=== PATIENT | male | born 1995 | race Caucasian/White ===

== ENCOUNTER 2017-06-03 21:52 | Emergency (ER) | payer OTHER ==
[~2017-06-03] VITALS: Ht 182.9 cm; Wt 74.8 kg
[~2017-06-03 21:52] MED LIST: ACE3 PO; AMOX-559 PO
--- NOTE | 2017-06-03 22:07 | ER Report ---
History and Physical Time Seen By MD: 22:06 Hx. of Stated Complaint: PT REPORTS VOMITING SINCE 1700. IS CONSTIPATED. JUST GOT BACK FROM [place]. PT REPORTS SHARP PAIN IN CENTER OF STOMACH. HPI/ROS CHIEF COMPLAINT: nausea/vomiting and abdominal pain HISTORY OF PRESENT ILLNESS: This is a 21 year old male. He just returned home from [place]. On the way home from [place], he began having nausea and vomiting. He also has central abdominal pain. He had diarrhea x1 episode earlier today. No fevers. No sick contacts. He is unaware of any bad food exposure and avoided drinking the water while in [place]. He feels like he is dehydrated as well. No pain, burning or trouble urinating. REVIEW OF SYSTEMS: As above. Allergies: Coded Allergies: No Known Allergies (Unverified Allergy, Mild, 06/03/17) Home Meds Active Scripts Ondansetron (ZOFRAN ODT) 4 Mg Tab.rapdis, 4 MG PO Q6H Y for NAUSEA/VOMITING, # 20 TAB.KRISTOPHER 0 Refills Prov:KEILA OCHOA MD 06/03/17 Discontinued Scripts Amoxicillin/Pot Clav 875-125 Mg Tab (AUGMENTIN 875-125 TABLET) 1 Each Tablet, 1 TAB PO Q12H, #28 TAB Prov:VERITO GRAYSON FLOOR FRAMER 02/03/16 Reviewed Nurses Notes: Yes Hx Substance Use Disorder: No Constitutional Vital Sign - Last 24 Hours 06/03/17 06/03/17 06/03/17 06/03/17 22:00 22:02 22:15 22:30 Temp 100.9 Pulse 81 63 80 Resp 14 B/P (MAP) 138/70 (92) 136/70 116/60 (78) Pulse Ox 94 95 87 O2 Delivery Room Air 06/03/17 06/03/17 06/03/17 06/03/17 22:45 23:00 23:00 23:05 Pulse 80 ??? B/P (MAP) 117/53 (74) Pulse Ox 86 O2 Flow Rate 2.0 06/03/17 06/03/17 06/03/17 06/04/17 23:09 23:30 23:45 00:00 Temp 100.0 Pulse 76 67 84 Resp 14 14 B/P (MAP) 117/53 (74) 114/52 (72) 118/78 (91) Pulse Ox 92 95 O2 Delivery Room Air Room Air Physical Exam General Appearance: The patient is alert. No acute distress. Eyes: Pupils are equal, round. No pallor, injection or icterus. ENT: Mucous membranes are a little dry, but otherwise normal. Posterior oropharynx is normal. Respiratory: Lungs are clear to auscultation. Cardiovascular: Regular rate and rhythm. No murmurs, gallops or rubs. Normal capillary refill. Gastrointestinal: Abdomen is soft, tenderness periumbilical area. Nondistended. No rebound or guarding. Normal active bowel sounds. No costovertebral angle tenderness with percussion. Neurological: Alert and oriented x3. Skin: Warm and dry. No rashes. Musculoskeletal: Extremities are nontender. No tenderness in palpation of the back/spine. DIFFERENTIAL DIAGNOSIS: After history and physical exam, differential diagnosis was considered for abdominal pain and nausea/vomiting with one episode of diarrhea. Suspect likely gastroenteritis and mild dehydration. Medical Decision Making Data Points Result Diagram: 06/03/17220806/03/172208 Laboratory Hematology Test 06/03/17 21:58 06/03/17 22:09 Urine Color Yellow Urine Clarity Clear Urine pH 5.0 pH (4.8-9.5) Urine Specific [place] 1.027 Urine Protein Negative mg/dL (NEGATIVE) Urine Glucose (UA) Negative mg/dL (NEGATIVE) Urine Ketones Negative mg/dL (NEGATIVE) Urine Blood Negative (NEGATIVE) Urine Nitrite Negative (NEGATIVE) Urine Bilirubin Negative (NEGATIVE) Urine Urobilinogen Negative mg/dL (0.2-1.9) Urine Leukocyte Esterase Negative (NEGATIVE) Urine RBC 1 /HPF (0-2/HPF) Urine WBC 2 /HPF (0-5/HPF) Urine Squamous Epithelial Cells None /LPF (</=FEW) Urine Bacteria Negative /HPF (NONE-FEW) Urine Mucus Few /HPF (NONE-FEW) Red Blood Count 5.17 M/uL (4.00-5.60) Mean Corpuscular Volume 85.7 fL (80.0-96.0) Mean Corpuscular Hemoglobin 29.4 pg (26.0-33.0) Mean Corpuscular Hemoglobin Concent 34.3 g/dL (32.0-36.0) Red Cell Distribution Width 13.4 % (11.5-14.5) Mean Platelet Volume 7.4 fL (7.2-11.1) Neutrophils (%) (Auto) 91.4 % (39.4-72.5) Lymphocytes (%) (Auto) 2.9 % (17.6-49.6) Monocytes (%) (Auto) 4.8 % (4.1-12.4) Eosinophils (%) (Auto) 0.5 % (0.4-6.7) Basophils (%) (Auto) 0.4 % (0.3-1.4) Nucleated RBC Relative Count (auto) 0.0 /100WBC Neutrophils # (Auto) 15.5 K/uL (2.0-7.4) Lymphocytes # (Auto) 0.5 K/uL (1.3-3.6) Monocytes # (Auto) 0.8 K/uL (0.3-1.0) Eosinophils # (Auto) 0.1 K/uL (0.0-0.5) Basophils # (Auto) 0.1 K/uL (0.0-0.1) Nucleated RBC Absolute Count (auto) 0.00 K/uL Sodium Level 137 mmol/L (137-145) Potassium Level 3.8 mmol/L (3.5-5.0) Chloride Level 99 mmol/L (98-107) Carbon Dioxide Level 26 mmol/L (22-30) Blood Urea Nitrogen 22 mg/dl (9-21) Creatinine 0.80 mg/dl (0.66-1.25) Glomerular Filtration Rate Calc > 60.0 Random Glucose 115 mg/dl (75-110) Calcium Level 9.5 mg/dl (8.4-10.2) Total Bilirubin 0.7 mg/dl (0.2-1.3) Aspartate Amino Transf (AST/SGOT) 56 U/L (0-35) Alanine Aminotransferase (ALT/SGPT) 90 U/L (0-56) Alkaline Phosphatase 85 U/L (0-126) C-Reactive Protein 1.0 mg/dl (<1.0) Total Protein 7.8 gm/dl (6.3-8.2) Albumin 4.6 g/dl (3.5-5.0) Amylase Level 52 U/L (0-110) Lipase 32 U/L (23-300) Chemistry Test 06/03/17 21:58 06/03/17 22:09 Urine Color Yellow Urine Clarity Clear Urine pH 5.0 pH (4.8-9.5) Urine Specific [place] 1.027 Urine Protein Negative mg/dL (NEGATIVE) Urine Glucose (UA) Negative mg/dL (NEGATIVE) Urine Ketones Negative mg/dL (NEGATIVE) Urine Blood Negative (NEGATIVE) Urine Nitrite Negative (NEGATIVE) Urine Bilirubin Negative (NEGATIVE) Urine Urobilinogen Negative mg/dL (0.2-1.9) Urine Leukocyte Esterase Negative (NEGATIVE) Urine RBC 1 /HPF (0-2/HPF) Urine WBC 2 /HPF (0-5/HPF) Urine Squamous Epithelial Cells None /LPF (</=FEW) Urine Bacteria Negative /HPF (NONE-FEW) Urine Mucus Few /HPF (NONE-FEW) White Blood Count 17.0 k/uL (4.5-11.0) Red Blood Count 5.17 M/uL (4.00-5.60) Hemoglobin 15.2 g/dL (14.0-18.0) Hematocrit 44.3 % (42.0-52.0) Mean Corpuscular Volume 85.7 fL (80.0-96.0) Mean Corpuscular Hemoglobin 29.4 pg (26.0-33.0) Mean Corpuscular Hemoglobin Concent 34.3 g/dL (32.0-36.0) Red Cell Distribution Width 13.4 % (11.5-14.5) Platelet Count 292 K/uL (150-450) Mean Platelet Volume 7.4 fL (7.2-11.1) Neutrophils (%) (Auto) 91.4 % (39.4-72.5) Lymphocytes (%) (Auto) 2.9 % (17.6-49.6) Monocytes (%) (Auto) 4.8 % (4.1-12.4) Eosinophils (%) (Auto) 0.5 % (0.4-6.7) Basophils (%) (Auto) 0.4 % (0.3-1.4) Nucleated RBC Relative Count (auto) 0.0 /100WBC Neutrophils # (Auto) 15.5 K/uL (2.0-7.4) Lymphocytes # (Auto) 0.5 K/uL (1.3-3.6) Monocytes # (Auto) 0.8 K/uL (0.3-1.0) Eosinophils # (Auto) 0.1 K/uL (0.0-0.5) Basophils # (Auto) 0.1 K/uL (0.0-0.1) Nucleated RBC Absolute Count (auto) 0.00 K/uL Glomerular Filtration Rate Calc > 60.0 Calcium Level 9.5 mg/dl (8.4-10.2) Total Bilirubin 0.7 mg/dl (0.2-1.3) Aspartate Amino Transf (AST/SGOT) 56 U/L (0-35) Alanine Aminotransferase (ALT/SGPT) 90 U/L (0-56) Alkaline Phosphatase 85 U/L (0-126) C-Reactive Protein 1.0 mg/dl (<1.0) Total Protein 7.8 gm/dl (6.3-8.2) Albumin 4.6 g/dl (3.5-5.0) Amylase Level 52 U/L (0-110) Lipase 32 U/L (23-300) Urinalysis Test 06/03/17 21:58 Urine Color Yellow Urine Clarity Clear Urine pH 5.0 pH (4.8-9.5) Urine Specific [place] 1.027 Urine Protein Negative mg/dL (NEGATIVE) Urine Glucose (UA) Negative mg/dL (NEGATIVE) Urine Ketones Negative mg/dL (NEGATIVE) Urine Blood Negative (NEGATIVE) Urine Nitrite Negative (NEGATIVE) Urine Bilirubin Negative (NEGATIVE) Urine Urobilinogen Negative mg/dL (0.2-1.9) Urine Leukocyte Esterase Negative (NEGATIVE) Urine RBC 1 /HPF (0-2/HPF) Urine WBC 2 /HPF (0-5/HPF) Urine Squamous Epithelial Cells None /LPF (</=FEW) Urine Bacteria Negative /HPF (NONE-FEW) Urine Mucus Few /HPF (NONE-FEW) EKG/Imaging Imaging ACUTE ABDOMEN SERIES 3 VIEW HISTORY: Periumbilical abdominal pain and diarrhea for one day. Just returning from [place]. COMPARISON: None. TECHNIQUE: PA upright view of the chest, AP supine and AP upright views of the abdomen. Chest: The lungs are clear. The cardiac and mediastinal silhouettes are within normal limits. Bones and soft tissues are unremarkable. Abdomen: The distribution of bowel gas is normal, with bowel in all four quadrants as well as centrally. No free air. No dilated loops of bowel. No acute osseous abnormality. IMPRESSION: 1. No acute cardiopulmonary process. 2. Unremarkable bowel gas pattern without obstruction. Report Dictated By: Roma Archer at 06/03/2017 11:38 PM ED Course/Re-evaluation Clinical Indication for ER IV: Hydration, IV Access ED Course Improved symptoms with Morphine and Zofran and a liter of normal saline. Labs unremarkable. Imaging normal gas pattern. Appears likely viral gastroenteritis, but cannot rule out food borne illness as well. Zofran and clear fluids with advancing diet as noted below. Decision to Disposition Date: Jun 03, 2017 Decision to Disposition Time: 23:49 Depart Departure Latest Vital Signs Vital Signs Date Time Temp Pulse Resp B/P (MAP) Pulse Ox O2 Delivery O2 Flow Rate FiO2 06/04/17 00:00 100.0 84 14 118/78 (91) 95 Room Air 06/03/17 23:00 2.0 Impression: Primary Impression: Viral gastroenteritis Condition: Improved Disposition: HOME OR SELF-CARE New Scripts Ondansetron (ZOFRAN ODT) 4 Mg Tab.rapdis 4 MG PO Q6H Y for NAUSEA/VOMITING, #20 TAB.KRISTOPHER 0 Refills Prov: KEILA OCHOA MD 06/03/17 Patient Instructions: B.R.A.T.Diet, Gastroenteritis (ED) Additional Instructions: Rest. Increase fluid intake. Once feeling better, advance to a bland or BRAT diet. Take Zofran 4mg, one every 6 hours as needed for nausea. KEILA OCHOA MD Jun 03, 2017 22:07
[2017-06-03] MEDS ORDERED: NS(*) 0.9% 1000 ML BAG 1,000 ML IV ONE (22:13)
[2017-06-03] MEDS ORDERED: ONDANSETRON 4 MG/2 ML VIAL IVP ONE (22:15)
[2017-06-03] MEDS ORDERED: MORPHINE 4 MG/ML SYR IVP ONE (22:15)
[2017-06-03 22:27] LABS: PLATELET COUNT, AUTOMATED 292 K/uL (150-450)
--- NOTE | 2017-06-03 23:42 | RADIOLOGY IMAGING REPORT ---
FACILITY: [facility] [place]IENT NAME: Thang Brooke : 1995 MR: [id number] V: [id number] EXAM DATE: ORDERING PHYSICIAN: KEILA OCHOA TECHNOLOGIST: Location: [facility] - [place] Patient: Thang Brooke : 1995 Visit/Account:[id number] Date of Sevice: 06/03/2017 ACUTE ABDOMEN SERIES 3 VIEW HISTORY: Periumbilical abdominal pain and diarrhea for one day. Just returning from [place]. COMPARISON: None. TECHNIQUE: PA upright view of the chest, AP supine and AP upright views of the abdomen. Chest: The lungs are clear. The cardiac and mediastinal silhouettes are within normal limits. Bones a nd soft tissues are unremarkable. Abdomen: The distribution of bowel gas is normal, with bowel in all four quadrants as well as central ly. No free air. No dilated loops of bowel. No acute osseous abnormality. IMPRESSION: 1. No acute cardiopulmonary process. 2. Unremarkable bowel gas pattern without obstruction. Report Dictated By: Roma Archer at 06/03/2017 11:38 PM Report E-Signed By: Roma Archer at 06/03/2017 11:39 PM WSN:[id number]
[2017-06-03] MEDS ORDERED: ONDA4TAB PO (23:51)
[2017-06-03] MEDS ORDERED: ONDANSETRON 4 MG ODT TH SL ONE (23:55)
[2017-06-04] VITALS: BP 118/78
== END 2017-06-04 00:11 | disposition home or self-care (01) ==
LOC: ER 22:03
DX: A08.4 Viral intestinal infection, unspecified (principal)
CPT/HCPCS: 74022; 81001; 82150; 83690; 85025; 86140; 96361; 96374; 96375; 99284; J2270; J2405; J7030; S0119; 82040; 82247; 82310; 82374; 82435; 82565; 82947; 84075; 84132; 84155; 84295; 84450; 84460; 84520